=== PATIENT | female | born 1965 | race Two or more races ===

== ENCOUNTER 2022-02-15 22:01 | Inpatient (IN) | payer MEDICAID ==
[~2022-02-15] VITALS: Ht 160 cm; Wt 67.8 kg
[~2022-02-15 22:01] MED LIST: DIPH50TA9 PO; LEVO500T31 PO; OMEP20CA74 PO; PROM25TA5 PO; [UNRECOGNIZED DRUG - CODE] PO
[2022-02-15 23:03] LABS: Basophils # (auto) 0.2 10 ^3/uL (0-0.2); Basophils % (auto) 3.5 % (0.0-2.0); Eosinophils # (auto) 0 10 ^3/uL (0-0.8); Eosinophils % (auto) 0.1 % (0.0-7.0); Hematocrit 40.8 % (36.0-46.0); Hemoglobin 13.4 g/dL (12.2-16.2); Lymphocytes # (auto) 0.6 10 ^3/uL (0.4-5.4); Lymphocytes % (auto) 9.3 % (10.0-50.0); Mean Corpuscular Hemoglobin 29.5 pg (28.0-32.0); Mean Corpuscular Hgb Conc. 32.8 g/dL (32.0-36.0); Monocytes # (auto) 0.5 10 ^3/uL (0-1.3); Monocytes % (auto) 8.4 % (0.0-12.0); Neutrophils # (auto) 5.1 10 ^3/uL (1.6-8.6); Neutrophils % (auto) 78.7 % (37.0-80.0); Red Blood Cells 4.53 10^6/uL (4.0-5.20); White Blood Cell 6.4 10^3/uL (4.4-10.8)
[2022-02-15 23:20] LABS: Albumin 3.7 g/dL (3.4-5.0); BUN/Creatinine Ratio 14.8; Calcium 8.8 mg/dL (8.5-10.1); Potassium 3.4 mmol/L (3.5-5.1)
[2022-02-15 23:23] LABS: Bilirubin, Total 0.3 mg/dL (0.2-1.0); Total Protein 7.6 g/dL (6.4-8.2)
[2022-02-16 02:25] LABS: Urine Bacteria FEW /hpf (None Seen); Urine Blood 2+ /uL (Negative); Urine Specific Gravity 1.013 (1.001-1.035); Urine WBC 23 /hpf (0 - 5)
[2022-02-16] MEDS ORDERED: AZITHROMYCIN 500MG/ 250ML 250 ML IV ONE (05:00)
[2022-02-16] MEDS ORDERED: cefTRIAXone 1GM/50ML D5W 50 ML IV ONE (05:00)
[2022-02-16] MEDS ORDERED: ONDANSETRON HCL 4 MG/2 ML VIAL IV PRN (06:00)
[2022-02-16] MEDS ORDERED: TEMAZEPAM 15 MG CAP PO PRN (06:00)
[2022-02-16] MEDS ORDERED: SODIUM CHLORIDE 0.9% 1,000 ML IV SCH (06:00)
[2022-02-16] MEDS ORDERED: DOCUSATE SOD 100 MG CAP PO PRN (06:00)
[2022-02-16] MEDS ORDERED: ACETAMINOPHEN 500 MG TAB PO PRN (06:00)
[2022-02-16] MEDS ORDERED: LORazepam 0.5 MG TAB PO PRN (06:00)
[2022-02-16] MEDS ORDERED: ACETAMINOPHEN 325 MG TAB PO PRN (06:00)
[2022-02-16] MEDS ORDERED: HYDROcodone-ACET 5/325MG TAB PO PRN (06:00)
[2022-02-16] MEDS ORDERED: MORPHINE SULFATE INJ 2 MG/ml SYRG IV PRN (06:00)
[2022-02-16] MEDS: cefTRIAXone 1GM/50ML D5W 50 ML IV SCH (09:22)
[2022-02-16] MEDS: AZITHROMYCIN 500MG/ 250ML 250 ML IV SCH (09:22)
[2022-02-16] MEDS: CHOLECALCIFEROL (VITD3) 2,000 UNIT CAP/TAB PO SCH (09:22)
[2022-02-16] MEDS: DexAMETHasone SOD PHOS 10MG/1ML VIAL INJ IV SCH (09:23)
[2022-02-16] MEDS: ENOXAPARIN SOD 40 MG/0.4 ML SYRINGE SC SCH (09:23)
[2022-02-16] MEDS: ZINC SULFATE 220mg CAP or TAB PO SCH (09:23)
[2022-02-16] MEDS: ASCORBIC ACID 1,000 MG TAB PO SCH (09:23)
[2022-02-16] MEDS: BUDESONIDE (INHALATION) 180 MCG IH IN SCH ×4 (11:10→23:33)
[2022-02-16 11:24] VITALS: BP 113/75
[2022-02-16] MEDS ORDERED: FUROSEMIDE 20 MG/2 ML VIAL IV ONE (12:45)
[2022-02-17 02:18] VITALS: BP 110/54
[2022-02-17 05:00] VITALS: BP 98/51
[2022-02-17 05:27] LABS: Basophils # (auto) 0 10 ^3/uL (0-0.2); Basophils % (auto) 0.4 % (0.0-2.0); Eosinophils # (auto) 0 10 ^3/uL (0-0.8); Eosinophils % (auto) 0.2 % (0.0-7.0); Hematocrit 41.1 % (36.0-46.0); Hemoglobin 13.6 g/dL (12.2-16.2); Lymphocytes # (auto) 1.3 10 ^3/uL (0.4-5.4); Lymphocytes % (auto) 22.8 % (10.0-50.0); Mean Corpuscular Hemoglobin 29.1 pg (28.0-32.0); Mean Corpuscular Hgb Conc. 33.1 g/dL (32.0-36.0); Monocytes # (auto) 0.7 10 ^3/uL (0-1.3); Neutrophils # (auto) 3.7 10 ^3/uL (1.6-8.6); Neutrophils % (auto) 64.6 % (37.0-80.0); Red Blood Cells 4.67 10^6/uL (4.0-5.20); White Blood Cell 5.7 10^3/uL (4.4-10.8)
[2022-02-17 05:46] LABS: Albumin 3.5 g/dL (3.4-5.0); Calcium 8.8 mg/dL (8.5-10.1); Potassium 3.3 mmol/L (3.5-5.1)
[2022-02-17 05:51] LABS: BUN/Creatinine Ratio 15.8; Bilirubin, Total 0.4 mg/dL (0.2-1.0); Total Protein 7.6 g/dL (6.4-8.2)
[2022-02-17 09:00] VITALS: BP 116/68
[2022-02-17] MEDS: ASCORBIC ACID 1,000 MG TAB PO SCH (09:38)
[2022-02-17] MEDS: CHOLECALCIFEROL (VITD3) 2,000 UNIT CAP/TAB PO SCH (09:38)
[2022-02-17] MEDS: ZINC SULFATE 220mg CAP or TAB PO SCH (09:38)
[2022-02-17] MEDS: ALBUTEROL SULF HFA 90MCG INH 200DOSE IN PRN ×2 (09:41→18:20)
[2022-02-17] MEDS: BUDESONIDE (INHALATION) 180 MCG IH IN SCH ×2 (09:41→18:17)
[2022-02-17] MEDS: ENOXAPARIN SOD 40 MG/0.4 ML SYRINGE SC SCH (09:56)
[2022-02-17] MEDS ORDERED: FUROSEMIDE 20 MG/2 ML VIAL IV SCH (10:00)
[2022-02-17] MEDS: DexAMETHasone SOD PHOS 10MG/1ML VIAL INJ IV SCH (11:15)
[2022-02-17] MEDS: cefTRIAXone 1GM/50ML D5W 50 ML IV SCH (11:43)
[2022-02-17] MEDS: AZITHROMYCIN 500MG/ 250ML 250 ML IV SCH (12:37)
[2022-02-17 13:00] VITALS: BP 105/56
[2022-02-17] MEDS ORDERED: ERGOCALCIFEROL 50,000 UNIT(1.25MG) CAP PO SCH (13:45)
[2022-02-17] MEDS ORDERED: POTASSIUM CHL 20 Meq TABLET PO ONE (13:45)
[2022-02-17 17:00] VITALS: BP 120/73
[2022-02-17 17:06] VITALS: BP 116/68
== END 2022-02-17 18:48 | disposition home or self-care (01) | DRG 137 ==
LOC: EDBD 22:01 → ER 22:01 → OVERFLOW 02-16 05:49 → WEST WING 02-16 23:33
PROVIDERS: ADMIT Hospitalist; ATTEND Internal Medicine
DX: U07.1 COVID-19 (principal); E55.9 Vitamin D deficiency, unspecified; N30.00 Acute cystitis without hematuria; F41.9 Anxiety disorder, unspecified; Z87.11 Personal history of peptic ulcer disease; Z82.49 Family history of ischemic heart disease and other diseases of the circulatory system
CPT/HCPCS: 36415; 71045; 80053; 81001; 82306; 83036; 83735; 84484; 85025; 94640; 96361; 96365; 96368; G0378; J0696; J1100